=== PATIENT | female | born 1995 | race Caucasian/White ===

== ENCOUNTER 2017-08-25 17:55 | Inpatient (IN) | payer OTHER ==
[2017-08-25] MEDS ORDERED: LACTATED RINGERS 1,000 ML ONE (18:22)
[2017-08-25] MEDS ORDERED: ePHEDrine SULFATE IV PRN (18:37)
[2017-08-25] MEDS ORDERED: SUBLIMAZE IV PRN (18:37)
[2017-08-25] MEDS ORDERED: BRETHINE IVP PRN (18:37)
[2017-08-25] MEDS ORDERED: BRETHINE SUB-Q PRN (18:37)
--- NOTE | 2017-08-25 18:40 | History and Physical Report ---
History of Present Illness Date of examination: 08/25/17 Date of admission: 08/25/17 Chief complaint: Regular contractions; labor History of present illness: 22 year old presents to L&D triage in active labor. Patient states she started having regular contractions this morning. Patient denies vaginal bleeding or leaking of fluid. Patient reports active movement. Patient received care at [facility]. Patient states she has not had any problems during this . Patient states she has had 2 previous normal vaginal deliveries. 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 denies: smoking, alcohol abuse, prescription drug abuse, IV drug use - Obstetrical History Expected Date of Delivery: 08/31/17 Actual Gestation: 39 Week(s) 1 Day(s) : 3 Para: 2 Hx # Term Pregnancies: 3 Number of Pregnancies: 0 Spontaneous Abortions: 0 Induced : 0 Number of Living Children: 2 Medications and Allergies Allergies Allergy/AdvReac Type Severity Reaction Status Date / Time No Known Allergies Allergy Verified 08/25/17 18:29 Active Meds: Active Medications Ephedrine Sulfate (Ephedrine Sulfate) 10 mg IV Q2M PRN PRN Reason: Hypotension Fentanyl (Sublimaze) 100 mcg IV Q2H PRN PRN Reason: Labor Pain Lactated Ringer's (Lactated Ringers) 1,000 mls @ 125 mls/hr IV DIRECT ARIELLA Oxytocin/Sodium Chloride (Pitocin/Ns 20 Unit/1000ml Drip) 20 units in 1,000 mls @ 125 mls/hr IV DIRECT ARIELLA Terbutaline Sulfate (Brethine) 0.25 mg SUB-Q ONCE PRN PRN Reason: Hyperstimulation/Hypertonicity Terbutaline Sulfate (Brethine) 0.25 mg IVP ONCE PRN PRN Reason: Hyperstimulation/Hypertonicity Review of Systems All systems: negative (regular contractions since this morning) - Vital Signs Vital signs: Vital Signs Pulse Pulse Ox 82 99 08/25/17 18:17 08/25/17 18:17 Temp Pulse Resp BP Pulse Ox 98 F 84 20 124/77 99 08/25/17 18:29 08/25/17 18:37 08/25/17 18:29 08/25/17 18:30 08/25/17 18:37 - Physical Exam Cardiovascular: Regular rate, Normal S1, Normal S2 Lungs: Positive: Clear to auscultation Abdomen: Positive: normal appearance, soft. Negative: distention, tenderness, guarding, rigidity Genitourinary (Female): Positive: normal external genitalia (no lesions seen on careful exam with bright light upon admission). Negative: perineal/vulvar lesions Vagina: Positive: normal moisture Uterus: Positive: enlarged Anus/Rectum: Positive: normal perianal skin Extremities: Negative: tenderness, edema - Obstetrical FHR: category 1 Uterine Contraction Monitor Mode: External Cervical Dilatation: 4 Cervical Effacement Percentage: 75 station: -1 Uterine Contraction Frequency (min): q 2-4 minutes Uterine Contraction Pattern: Regular Uterine Contraction Intensity: Moderate Results All other labs normal. Assessment and Plan A: at 39 weeks, 1 day gestation. Active labor. GBS negative. P: Admit. Anticipate .
[2017-08-25] MEDS ORDERED: PITOCin/NS 20 UNIT/1000ML DRIP 20 UNITS/1,000 ML BAG IV SCH (19:00)
[2017-08-25 19:10] LABS: Hematocrit 40.5 % (30.3-42.9); Hemoglobin 13.2 gm/dl (10.1-14.3); Mean Corpuscular HGB Conc 33 % (30-34); Mean Corpuscular Hemoglobin 28 pg (28-32); Mean Corpuscular Volume 85 fl (79-97); Platelet Count 159 K/mm3 (140-440); Red Blood Count 4.75 M/mm3 (3.65-5.03); White Blood Count 9.8 K/mm3 (4.5-11.0)
[2017-08-25] MEDS: LACTATED RINGERS 1,000 ML IV SCH (19:32)
[2017-08-25 19:37] LABS: Red Cell Distribution Width 20.9 % (13.2-15.2)
[2017-08-26] MEDS ORDERED: CYTOTEC PR ONE (00:49)
[2017-08-26] MEDS ORDERED: METHERGINE IM ONE (00:50)
[2017-08-26] MEDS ORDERED: CYTOTEC ONE (00:50)
[2017-08-26] MEDS ORDERED: TYLENOL PO PRN (01:01)
[2017-08-26] MEDS ORDERED: TUCKS PAD TP PRN (01:01)
[2017-08-26] MEDS ORDERED: MILK OF MAGNESIA PO PRN (01:01)
[2017-08-26] MEDS: LACTATED RINGERS 1,000 ML IV SCH (01:02)
--- NOTE | 2017-08-26 01:12 | Procedure Note ---
OB Delivery Note - Delivery Date of Delivery: 08/26/17 - Vaginal Delivery presentation: vertex Delivery position: OA Intrapartum events: hemorrhage Delivery induction: none Delivery augmentation: rupture of membranes Delivery monitor: external FHT, external uterine Route of delivery: Delivery placenta: spontaneous Delivery cord: 3 umbilical vessels Episiotomy: none Delivery laceration: none Anesthesia: none Delivery comments: of liveborn male weighing 6 lb. 14 oz. over intact perineum at 00:39 with apgars of 8/9. Thin meconium stained amniotic fluid. Baby was born easily; then 3 vessel cord was double clamped and cut and baby was taken to radiant warmer and waiting NICU team. Spontaneous delivery of intact placenta and membranes. EBL 550 ml d/t uterine atony. Pitocin to IV fluids after delivery of placenta. Cytotec 800 mcg given rectally and fundus was massaged and bleeding was controlled. Fundus firm and midline below umbilicus. Vaginal sweep negative. Mother and baby stable in birthing room. Stat H&H ordered.
[2017-08-26] MEDS: MOTRIN PO SCH ×5 (01:23→23:06)
[2017-08-26 01:27] LABS: Hematocrit 37.3 % (30.3-42.9); Hemoglobin 12.4 gm/dl (10.1-14.3)
[2017-08-26] MEDS ORDERED: SODIUM CHLORIDE FLUSH SYRINGE 10 ML IV NR (02:00)
[2017-08-26] MEDS ORDERED: BOOSTRIX IM ONE (06:00)
[2017-08-26 07:48] LABS: Hematocrit 36.3 % (30.3-42.9)
[2017-08-27] MEDS: MOTRIN PO SCH ×2 (05:18→12:23)
--- NOTE | 2017-08-27 09:15 | Progress Note ---
Assessment and Plan A; PPD #1 stable P; Discharge home today Subjective - Subjective Date of service: 08/27/17 Principal diagnosis: Patient reports: appetite normal [place]: doing well Objective - Vital Signs Latest vital signs: Vital Signs Temp Pulse Resp BP 08/26/17 23:55 98.4 F 72 20 107/68 08/26/17 16:37 98.4 F 66 18 102/58 08/26/17 12:59 98.5 F 81 18 108/65 Intake and Output 08/26/17 08/27/17 08/27/17 22:59 06:59 14:59 Intake Total 360 360 Balance 360 360 Intake: Oral 360 120 Intake, Free Water 240 Other: Total, Intake Amount 360 120 # Voids Void 1 1 - Exam Breasts: Present: deferred Cardiovascular: Present: Regular rate Abdomen: Present: soft Vulva: both: normal Uterus: Present: fundal height below umbilicus Extremities: Present: normal Deep Tendon Reflex Grade: Normal +2 Incision: Present: normal
--- NOTE | 2017-08-27 09:15 | Discharge Summary ---
Providers - Providers Date of Admission: 08/25/17 17:56 Date of discharge: 08/27/17 Attending physician: JENIFER SPRINGER MD Primary care physician: JENIFER SPRINGER MD Hospitalization Reason for admission: active labor Delivery: Episiotomy: none Laceration: none Incision: normal Other procedures: none complications: none Condition at discharge: Good Disposition: DC-01 TO HOME OR SELFCARE Plan - Provider Discharge Summary Activity: routine, no sex for 6 weeks, no strenuous exercise Diet: routine Instructions: routine Additional instructions: [] Smoking cessation referral if applicable(refer to patient education folder for contact #) [] Refer to [facility]'s [facility] Booklet Call your doctor immediately for: * Fever > 100.5 * Heavy vaginal bleeding ( >1 pad per hour) * Severe persistent headache * Shortness of breath * Reddened, hot, painful area to leg or breast * Drainage or odor from incision. * Keep incision clean and dry at all times and follow doctor's instructions regarding bathing/showering - Follow up plan Follow up: JENIFER SPRINGER MD [Primary Care Provider] - 6 Weeks
[2017-08-27] MEDS ORDERED: Fluarix Quad 2017-2018(36 MOS+ IM ONE (14:30)
[2017-08-27 15:07] VITALS: BP 114/70
== END 2017-08-27 15:45 | disposition home or self-care (01) | DRG 774 ==
LOC: TRG 17:55 → LD 17:56 → OB 08-26 02:25
PROVIDERS: ADMIT Obstetrics & Gynecology; ATTEND Obstetrics & Gynecology
PROC: 10E0XZZ Delivery of Products of Conception, External Approach (ICD-10-PCS; principal; 2017-08-26)
PROC: 3E0234Z Introduction of Serum, Toxoid and Vaccine into Muscle, Percutaneous Approach (ICD-10-PCS; 2017-08-27)
DX: O77.0 Labor and delivery complicated by meconium in amniotic fluid (principal); O67.9 Intrapartum hemorrhage, unspecified; O72.1 Other immediate postpartum hemorrhage; Z3A.39 39 weeks gestation of pregnancy; Z37.0 Single live birth; Z23 Encounter for immunization
CPT/HCPCS: 36415; 59025; 85014; 85018; 85027; 86850; 86900; 86901; 90471; 90686; 90715; 99211; G0463; J2210; J2590; J7120

== ENCOUNTER 2022-06-09 08:15 | Inpatient (IN) | payer SELFPAY ==
[2022-06-09] MEDS ORDERED: miSOPROStol 200 MCG TAB PR PRN (08:29)
[2022-06-09] MEDS ORDERED: TERBUTALINE 1 MG/1 ML INJ SUB-Q PRN (08:29)
[2022-06-09] MEDS ORDERED: LOPERAMIDE 2 MG CAP PO PRN (08:29)
[2022-06-09] MEDS ORDERED: OXYTOCIN 10 UNIT/1 ML INJ IM PRN (08:29)
[2022-06-09] MEDS ORDERED: ePHEDrine SULFATE 50 MG/1 ML INJ IV PRN (08:29)
[2022-06-09] MEDS ORDERED: METHYLERGONOVINE MALEATE 0.2 MG/ML VIAL IM PRN (08:29)
[2022-06-09] MEDS ORDERED: MINERAL OIL 30 ML ORAL LIQD PO PRN (08:29)
[2022-06-09] MEDS ORDERED: LACTATED RINGERS 1,000 ML IV SCH (08:30)
[2022-06-09] MEDS ORDERED: OXYTOCIN DRIP 30 UNITS/500 ML BAG IV SCH ×2 (09:00)
--- NOTE | 2022-06-09 09:08 | History and Physical Report ---
History of Present Illness Date of examination: 06/09/22 Date of admission: May Chief complaint: labor pain History of present illness: 26 Y/O G 4 P3 with care at [facility] presents to labor and delivery in active labor. GBS Pos. 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: abnormal PAP smear (HGSIL) Family/Genetic History: none Social history: no significant social history - Obstetrical History Expected Date of Delivery: 06/14/22 Actual Gestation: 39 Week(s) 2 Day(s) : 4 Para: 3 Number of Living Children: 3 Medications and Allergies Allergies Allergy/AdvReac Type Severity Reaction Status Date / Time No Known Allergies Allergy Verified 08/25/17 18:29 Home Medications Medication Instructions Recorded Confirmed Last Taken Type Vit-Fe Fumar-FA [ 1 tab PO QDAY 08/25/17 08/25/17 08/24/17 History Vitamin] Active Meds: Active Medications Acetaminophen (Acetaminophen 325 Mg Tab) 650 mg PO Q4H PRN PRN Reason: Pain, Mild (1-3) Butorphanol Tartrate (Butorphanol 2 Mg/1 Ml Inj) 1 mg IV Q2H PRN PRN Reason: Pain, Moderate(4-6) LABOR PAIN Butorphanol Tartrate (Butorphanol 2 Mg/1 Ml Inj) 2 mg IV Q2H PRN PRN Reason: Pain , Severe (7-10) Carboprost Tromethamine (Carboprost Tromethamine 250 Mcg/1 Ml Inj) 250 mcg IM ONCE PRN PRN Reason: Uterine Bleeding Ephedrine Sulfate (Ephedrine Sulfate 50 Mg/1 Ml Inj) 10 mg IV Q2M PRN PRN Reason: Hypotension Oxytocin/Sodium Chloride (Pitocin/Ns 30 Unit/500ml) 30 units in 500 mls @ 2 mls/hr IV TITR ARIELLA; Protocol Lactated Ringer's (Lactated Ringers) 1,000 mls @ 125 mls/hr IV DIRECT ARIELLA Oxytocin/Sodium Chloride (Pitocin/Ns 30 Unit/500ml) 30 units in 500 mls @ 40 mls/hr IV TITR ARIELLA; Protocol Lidocaine (Lidocaine (2%) 20 Mg/1 Ml Vial 20 Ml Mdv) 20 ml INFILTRATI ONCE ONE Stop: 06/09/22 08:30 Loperamide HCl (Loperamide 2 Mg Cap) 2 mg PO ONCE PRN PRN Reason: give with Hemabate Methylergonovine Maleate (Methylergonovine Maleate 0.2 Mg/Ml Vial) 0.2 mg IM ONCE PRN PRN Reason: Uterine Bleeding Mineral Oil (Mineral Oil 30 Ml Oral Liqd) 30 ml PO QHS PRN PRN Reason: Constipation Misoprostol (Misoprostol 200 Mcg Tab) 800 mcg VT ONCE PRN PRN Reason: Uterine Bleeding Oxytocin (Oxytocin 10 Unit/1 Ml Inj) 10 unit IM ONCE PRN PRN Reason: Uterine Bleeding Terbutaline Sulfate (Terbutaline 1 Mg/1 Ml Inj) 0.25 mg SUB-Q ONCE PRN PRN Reason: Hyperstimulation/Hypertonicity Review of Systems All systems: negative - Vital Signs Vital signs: Vital Signs Temp Pulse Resp BP 98.5 F 86 15 130/65 06/09/22 08:40 06/09/22 08:40 06/09/22 08:40 06/09/22 08:40 Temp Pulse Resp BP Pulse Ox 98.5 F 86 15 130/65 06/09/22 08:40 06/09/22 08:41 06/09/22 08:40 06/09/22 08:41 - Physical Exam Breasts: Positive: deferred Cardiovascular: Regular rate Lungs: Positive: Clear to auscultation Abdomen: Positive: soft Genitourinary (Female): Positive: normal external genitalia Vulva: both: normal Vagina: Positive: normal moisture Uterus: Positive: enlarged Deep Tendon Reflex Grade: Normal +2 - Obstetrical FHR: category 1 Uterine Contraction Monitor Mode: External Cervical Dilatation: 5 Cervical Effacement Percentage: 80 station: -1 Uterine Contraction Pattern: Regular Uterine Contraction Intensity: Mild Results All other labs normal. Assessment and Plan A: Active labor at 39.4 weeks P: Expect
[2022-06-09 09:10] LABS: Hematocrit 35.5 % (30.3-42.9); Hemoglobin 11.9 gm/dl (10.1-14.3); Mean Corpuscular HGB Conc 34 % (30-34); Mean Corpuscular Volume 80 fl (79-97); Platelet Count 155 K/mm3 (140-440); Red Blood Count 4.45 M/mm3 (3.65-5.03); Red Cell Distribution Width 15.9 % (13.2-15.2)
[2022-06-09] MEDS ORDERED: CARBOPROST TROMETHAMINE 250 MCG/1 ML INJ IM PRN (09:30)
[2022-06-09] MEDS ORDERED: AMPICILLIN/NS 2 GM/100 ML 2 GM/100 ML BAG IV ONE (10:00)
[2022-06-09] MEDS ORDERED: ACETAMINOPHEN 325 MG TAB PO PRN ×2 (10:00→16:00)
[2022-06-09] MEDS ORDERED: LIDOCAINE (2%) 20 MG/1 ML VIAL 20 ML MDV INFILTRATI ONE (10:00)
[2022-06-09] MEDS ORDERED: BUTORPHANOL 2 MG/1 ML INJ IV PRN ×2 (10:00)
--- NOTE | 2022-06-09 11:28 | Event Note ---
Date: 06/09/22 S: Feeling contractions O: VE /-2, arom light mec, Pit at 4 mu, CAT I tracing A: Active labor P: Expect
[2022-06-09] MEDS ORDERED: LIDOCAINE MPF (2%) 20 MG/1 ML VIAL 5 ML ONE (12:25)
--- NOTE | 2022-06-09 12:48 | Procedure Note ---
OB Delivery Note - Delivery Date of Delivery: 06/09/22 Surgeon: CELIA WALLER Estimated blood loss: 300cc - Vaginal Delivery presentation: vertex Delivery position: OA Intrapartum events: none Delivery augmentation: rupture of membranes, pitocin Route of delivery: Delivery placenta: spontaneous Delivery cord: 3 umbilical vessels Episiotomy: none Delivery laceration: 1st degree Delivery repair: vicryl Anesthesia: local Delivery comments: of a viable female 8# 3oz on 06/09/2022@ 1218 ovewr first degree laceration. Terminal meconium noted. Placenta delivered 3VCI. Apgars 8/9. QBL 300cc Mother and baby doing well. - Infant A at 1 minute: 8 at 5 minutes: 9 Infant Gender: Female (8# 3oz)
[2022-06-09] MEDS ORDERED: oxyCODONE /ACETAMINOPHEN 5-325MG TAB PO PRN (14:00)
[2022-06-09] MEDS ORDERED: AMPICILLIN/NS 1 GM/50 ML 1 GM/50 ML BAG IV SCH (14:00)
[2022-06-09] MEDS ORDERED: diphenhydrAMINE 25 MG CAP PO PRN (14:00)
[2022-06-09] MEDS ORDERED: WITCH HAZEL/ GLYCERIN PAD TP PRN (14:00)
[2022-06-09] MEDS ORDERED: LANOLIN/ZINC/DIMETHICONE (LANSINOH) 7 GM TP PRN (14:00)
[2022-06-09] MEDS: IBUPROFEN 800 MG TAB PO SCH ×2 (15:06→23:51)
[2022-06-10 00:50] LABS: Hematocrit 36.5 % (30.3-42.9); Hemoglobin 11.4 gm/dl (10.1-14.3)
[2022-06-10] MEDS: IBUPROFEN 800 MG TAB PO SCH ×2 (05:36→13:55)
--- NOTE | 2022-06-10 08:32 | Progress Note ---
Assessment and Plan A: PPD # 1 - stable P: Plan discharge in am Discharge instructions given Subjective - Subjective Date of service: 06/10/22 Principal diagnosis: PPD # 1- stable Interval history: Feeling well, no complaints Patient reports: appetite normal : doing well Objective - Vital Signs Latest vital signs: Vital Signs Temp Pulse Resp BP BP Pulse Ox 06/10/22 00:45 98.5 F 73 18 103/47 99 06/09/22 21:10 98.3 F 73 18 112/66 98 06/09/22 15:15 99.6 F 77 18 111/62 99 06/09/22 15:03 80 123/66 06/09/22 14:59 75 98 06/09/22 14:54 74 99 06/09/22 14:50 72 117/58 06/09/22 14:49 74 99 06/09/22 14:44 77 98 06/09/22 14:39 85 98 06/09/22 14:35 78 116/56 06/09/22 14:34 76 99 06/09/22 14:29 76 98 06/09/22 14:24 75 100 06/09/22 14:20 71 111/70 06/09/22 14:19 73 99 06/09/22 14:14 92 H 98 06/09/22 14:09 83 90 06/09/22 14:05 90 106/57 06/09/22 14:04 98 H 99 06/09/22 13:59 80 99 06/09/22 13:54 72 99 06/09/22 13:50 78 124/70 06/09/22 13:49 70 99 06/09/22 13:44 76 99 06/09/22 13:41 97.5 F L 75 114/61 06/09/22 13:39 97 06/09/22 13:33 101 H 100 06/09/22 13:28 75 99 06/09/22 13:23 85 99 06/09/22 13:20 91 H 118/66 06/09/22 13:18 79 99 06/09/22 13:13 82 99 06/09/22 13:08 87 99 06/09/22 13:06 76 109/59 06/09/22 13:03 90 99 06/09/22 12:58 110 H 98 06/09/22 12:53 92 H 98 06/09/22 12:48 105 H 99 06/09/22 12:43 89 99 06/09/22 12:42 97.3 F L 84 113/58 06/09/22 12:38 99 H 99 06/09/22 12:35 77 81 L 06/09/22 12:33 105 H 93 06/09/22 12:28 87 98 06/09/22 12:27 104 H 77 L 06/09/22 12:23 93 H 96 06/09/22 12:18 108 H 96 06/09/22 12:13 127 H 98 06/09/22 12:08 117 H 96 06/09/22 12:03 115 H 99 06/09/22 11:58 105 H 98 06/09/22 11:53 109 H 98 06/09/22 11:48 96 H 100 06/09/22 11:43 107 H 98 06/09/22 11:38 112 H 98 06/09/22 11:33 106 H 98 06/09/22 11:21 113 H 98 06/09/22 11:14 95 H 99 06/09/22 11:09 99 H 98 06/09/22 11:04 107 H 98 06/09/22 10:59 118 H 96 06/09/22 10:54 105 H 98 06/09/22 10:53 73 85 06/09/22 10:49 99 H 99 06/09/22 10:44 94 H 98 06/09/22 10:39 91 H 99 06/09/22 10:34 91 H 99 06/09/22 10:29 114 H 99 06/09/22 10:22 104 H 92 06/09/22 10:21 99 H 99 06/09/22 10:16 107 H 99 06/09/22 10:11 108 H 99 06/09/22 10:06 110 H 98 06/09/22 10:01 102 H 99 06/09/22 09:56 90 98 06/09/22 09:53 90 94 06/09/22 09:51 105 H 98 06/09/22 09:46 92 H 98 06/09/22 08:41 86 130/65 06/09/22 08:40 98.5 F 86 15 130/65 Intake and Output 06/09/22 06/10/22 06/10/22 22:59 06:59 14:59 Intake Total 120 240 Output Total 1200 Balance -1080 240 Intake: Oral 120 240 Output: Urine 1200 Void 1200 Other: Total, Intake Amount 120 120 Total, Output Amount 600 # Voids Void 1 1 - Exam Breasts: Present: deferred Cardiovascular: Present: Regular rate Lungs: Present: Clear to auscultation Abdomen: Present: soft Vulva: both: normal Uterus: Present: fundal height below umbilicus Deep Tendon Reflex Grade: Normal +2 - Labs Labs: Abnormal lab results 06/09/22 Range/Units 08:50 WBC 11.8 H (4.5-11.0) K/mm3 MCH 27 L (28-32) pg RDW 15.9 H (13.2-15.2) %
--- NOTE | 2022-06-10 08:34 | Discharge Summary ---
Providers - Providers Date of Admission: 06/09/22 08:29 Date of discharge: 06/11/22 Attending physician: GERRI CRUZ MD Primary care physician: GERRI CRUZ MD Hospitalization Reason for admission: active labor Delivery: Laceration: 1st degree Other procedures: none complications: none Discharge diagnosis: IUP at term delivered [place] baby: female Condition at discharge: Good Disposition: 01 HOME / SELF CARE / HOMELESS Plan - Provider Discharge Summary Activity: routine, no sex for 6 weeks, no strenuous exercise Diet: routine Instructions: routine Additional instructions: [] Smoking cessation referral if applicable(refer to patient education folder for contact #) [] Refer to [facility]'s [facility] Booklet Call your doctor immediately for: * Fever > 100.5 * Heavy vaginal bleeding ( >1 pad per hour) * Severe persistent headache * Shortness of breath * Reddened, hot, painful area to leg or breast * Drainage or odor from incision. * Keep incision clean and dry at all times and follow doctor's instructions regarding bathing/showering - Follow up plan Follow up: GERRI CRUZ MD [Primary Care Provider] - 6 Weeks
[2022-06-11] MEDS: IBUPROFEN 800 MG TAB PO SCH ×2 (05:03→10:56)
[2022-06-11 13:15] VITALS: BP 129/78
== END 2022-06-11 12:25 | disposition home or self-care (01) | DRG 807 ==
LOC: TRG 08:15 → APU 08:18 → TRG 09:37 → LD 09:42 → OB 15:21
PROVIDERS: ADMIT Obstetrics & Gynecology Gynecology; ATTEND Obstetrics & Gynecology Gynecology
PROC: 10E0XZZ Delivery of Products of Conception, External Approach (ICD-10-PCS; principal; 2022-06-09)
PROC: 0HQ9XZZ Repair Perineum Skin, External Approach (ICD-10-PCS; 2022-06-09)
DX: O77.0 Labor and delivery complicated by meconium in amniotic fluid (principal); Z37.0 Single live birth; O70.0 First degree perineal laceration during delivery; Z3A.39 39 weeks gestation of pregnancy; Z20.822 Contact with and (suspected) exposure to COVID-19; O99.824 Streptococcus B carrier state complicating childbirth
CPT/HCPCS: 36415; 85014; 85018; 85027; 86850; 86900; 86901; 96360; G0378; J0290; J2590; U0003